=== PATIENT | female | born 1955 | race Two or more races ===

== ENCOUNTER 2022-05-23 17:34 | Emergency (ER) | payer OTHER ==
[~2022-05-23] VITALS: Ht 162.6 cm; Wt 63.5 kg
[2022-05-23] MEDS ORDERED: ZOLOFT20 MG/1 ML PO (17:47)
[2022-05-23] MEDS ORDERED: COZAAR25 MG PO (17:47)
== END 2022-05-23 23:34 | disposition home or self-care (01) ==
LOC: ER 17:34
DX: N20.0 Calculus of kidney (principal); F32.89 Other specified depressive episodes; I10 Essential (primary) hypertension